=== PATIENT | female | born 1990 | race Hispanic/Latino ===

== ENCOUNTER 2018-03-03 21:21 | Emergency (ER) | payer OTHER, MEDICAID ==
[2018-03-03 21:42] VITALS: BP 133/77; PULSE 76; RESP 17; TEMP 98.5; O2SAT 98
[2018-03-03] MEDS ORDERED: Tdap Vaccine 0.5 ml Vial (10-64 yrs) IM ONE ×2 (22:02→22:25)
[2018-03-03] MEDS ORDERED: Amoxicillin-Clav 875-125 mg Tab PO STA (22:02)
--- NOTE | 2018-03-03 22:05 | ED PDOC ---
HPI: Skin/Bite Injury Time Seen by Provider: 03/03/18 21:53 Chief Complaint (Nursing): Bite Chief Complaint (Provider): Dog bite History Per: Patient Additional Complaint(s): 27 yo female, no PMH, presents to ED for evaluation of a dog bite to right thumb , sustained [employer]. Pt reports she was at a constitution party, dog belonged to another girl who reports that all shots for the animal are UTD. Pt admits pain, no limitations in motion. sensation intact. Left hand dominant Past Medical History Reviewed: Nursing Documentation, Vital Signs Vital Signs: Last Vital Signs Temp 98.5 F 03/03/18 21:40 Pulse 76 03/03/18 21:40 Resp 17 03/03/18 21:40 BP 133/77 03/03/18 21:40 Pulse Ox 98 03/03/18 22:06 - Medical History PMH: No Chronic Diseases Denies: Chronic Kidney Disease - Family History Family History: States: Unknown Family Hx - Social History Alcohol: Social - Immunization History Hx Tetanus Toxoid Vaccination: No - Home Medications Home Medications: Ambulatory Orders Medication Instructions Recorded Azithromycin [Zithromax] 250 mg PO ASDIR 09/04/15 valACYclovir [Valtrex] 1 gm PO Q12H 09/04/15 Amoxicillin/Clavulanate [Augmentin 1 tab PO BID #14 tab 03/03/18 875 MG-125 MG] Fluconazole [Diflucan] 150 mg PO ACB #2 tab 03/03/18 Ibuprofen [Motrin] 600 mg PO Q6 #20 tab 03/03/18 - Allergies Allergies/Adverse Reactions: Allergies Allergy/AdvReac Type Severity Reaction Status Date / Time acetaminophen [From Tylenol] Allergy RASH Verified 03/03/18 21:42 Nuts Allergy ANAPHYLAXIS Uncoded 09/04/15 09:47 Review of Systems ROS Statement: Except As Marked, All Systems Reviewed And Found Negative Skin: Positive for: Other (dog bite) Physical Exam - Reviewed Nursing Documentation Reviewed: Yes Vital Signs Reviewed: Yes - Physical Exam Appears: Positive for: Well, Non-toxic, No Acute Distress Head Exam: Positive for: ATRAUMATIC, NORMAL INSPECTION, NORMOCEPHALIC Skin: Positive for: Normal Color, Warm, DRY Eye Exam: Positive for: EOMI, Normal appearance, PERRL ENT: Positive for: Normal ENT Inspection Neck: Positive for: Normal, Painless ROM Cardiovascular/Chest: Positive for: Regular Rate, Rhythm Respiratory: Positive for: CNT, Normal Breath Sounds Gastrointestinal/Abdominal: Positive for: Normal Exam, Soft Back: Positive for: Normal Inspection Extremity: Positive for: Other (right thumb, 2 cm superficial lacertion noted to radial aspect, over IP joint. no active bleed. FROM to digit. distal sensation intact) Neurologic/Psych: Positive for: Alert, Oriented - ECG O2 Sat by Pulse Oximetry: 98 Medical Decision Making Medical Decision Making: T.dap administered by RN, Rabies and Igg administered by RN and database report writer XR: NAd, as rad by TOMAS Site cleaned and dressed by database report writer. Wound care discussed. Augmentin PO administered Disposition - Clinical Impression Clinical Impression: Animal bite wound - Patient ED Disposition Is Patient to be Admitted: No - Disposition Disposition: Routine/Home Disposition Time: 23:05 Condition: STABLE Prescriptions: Amoxicillin/Clavulanate [Augmentin 875 MG-125 MG] 1 tab PO BID #14 tab Fluconazole [Diflucan] 150 mg PO ACB #2 tab Ibuprofen [Motrin] 600 mg PO Q6 #20 tab Instructions: Animal Bites (DC) Forms: [employer] (Malagasy), [facility] ED School/Work Excuse
[2018-03-03] MEDS ORDERED: Rabies Immune Globulin 150 INTLU/ML VIAL IM ONE (22:17)
[2018-03-03] MEDS ORDERED: Amoxicillin-Clav 875-125 mg Tab PO ONE (22:24)
[2018-03-03] MEDS ORDERED: LIDOCAINE 2% 10ML 20 MG/ML VIAL IJ STA (22:43)
[2018-03-03] MEDS ORDERED: Lidocaine PF 2% (5 ml) Inj (For Cardiac Arrhy) ONE (22:52)
--- NOTE | 2018-03-04 14:51 | RAD ---
Date of service: 03/03/2018 PROCEDURE: Right Thumb radiographs. HISTORY: dog bite COMPARISON: None. TECHNIQUE: AP radiograph of the right hand, as well as spot oblique and lateral images of thumb were obtained. FINDINGS: RIGHT THUMB: Normal right thumb, without fracture or focal lesion. Remainder of the right hand (as seen on the AP view) grossly unremarkable. No cortical destructive changes. JOINTS: Joint spaces preserved. SOFT TISSUES: No opaque foreign bodies OTHER FINDINGS: None. IMPRESSION: Normal right thumb radiographs.
== END 2018-03-03 23:19 | disposition home or self-care (01) ==
LOC: H.ER 21:21
DX: S61.051A Open bite of right thumb without damage to nail, initial encounter (principal); W54.0XXA Bitten by dog, initial encounter; Y92.89 Other specified places as the place of occurrence of the external cause

== ENCOUNTER 2018-03-12 14:13 | Emergency (ER) | payer MEDICAID, OTHER ==
--- NOTE | 2018-03-12 14:55 | ED PDOC ---
HPI: General Adult Time Seen by Provider: 03/12/18 14:55 Chief Complaint (Nursing): Rabies Vaccine Series Chief Complaint (Provider): rabies vaccine History Per: Patient Additional Complaint(s): 27 y/o female presents for last rabies vaccine in series. She denies any reaction to previous vaccinations in series. Past Medical History Reviewed: Historical Data, Nursing Documentation, Vital Signs Vital Signs: Last Vital Signs Temp 98.3 F 03/12/18 14:38 Pulse 102 H 03/12/18 14:38 Resp 20 03/12/18 14:38 BP 132/92 H 03/12/18 14:38 Pulse Ox 99 03/12/18 14:55 - Medical History PMH: No Chronic Diseases - Surgical History Surgical History: No Surg Hx - Family History Family History: States: No Known Family Hx - Living Arrangements Living Arrangements: With Friends/Others - Social History Current smoker - smoking cessation education provided: No Alcohol: Social Drugs: Denies - Immunization History Hx Tetanus Toxoid Vaccination: Yes - Home Medications Home Medications: Ambulatory Orders Medication Instructions Recorded Azithromycin [Zithromax] 250 mg PO ASDIR 09/04/15 valACYclovir [Valtrex] 1 gm PO Q12H 09/04/15 Amoxicillin/Clavulanate [Augmentin 1 tab PO BID #14 tab 03/03/18 875 MG-125 MG] Fluconazole [Diflucan] 150 mg PO ACB #2 tab 03/03/18 Ibuprofen [Motrin] 600 mg PO Q6 #20 tab 03/03/18 Bacitracin Ointment [Bacitracin] 1 applic TOP BID #1 tube 03/06/18 - Allergies Allergies/Adverse Reactions: Allergies Allergy/AdvReac Type Severity Reaction Status Date / Time acetaminophen [From Tylenol] Allergy RASH Verified 03/12/18 14:38 Nuts Allergy ANAPHYLAXIS Uncoded 03/12/18 14:38 Review of Systems ROS Statement: Except As Marked, All Systems Reviewed And Found Negative Constitutional: Negative for: Fever, Chills Skin: Negative for: Rash, Lesions Physical Exam - Reviewed Nursing Documentation Reviewed: Yes Vital Signs Reviewed: Yes - Physical Exam Appears: Positive for: Well, Non-toxic, No Acute Distress Skin: Positive for: Normal Color. Negative for: Rash Eye Exam: Positive for: Normal appearance Cardiovascular/Chest: Positive for: Regular Rate, Rhythm Respiratory: Positive for: Normal Breath Sounds Neurologic/Psych: Positive for: Alert, Oriented, Gait (steady). Negative for: Motor/Sensory Deficits, Aphasia, Facial Droop - ECG O2 Sat by Pulse Oximetry: 99 Pulse Ox Interpretation: Normal Medical Decision Making Medical Decision Makin27 year old here for rabies vaccine Patient received IM vaccination. She was advised to follow up as needed with primary doctor. Disposition - Clinical Impression Clinical Impression: Rabies, need for prophylactic vaccination against - Patient ED Disposition Is Patient to be Admitted: No Counseled Patient/Family Regarding: Need For Followup - Disposition Referrals: [facility] [Outside] Disposition: Routine/Home Disposition Time: 15:09 Condition: STABLE Additional Instructions: Follow up as needed with primary care doctor. Instructions: Rabies Vaccine Forms: [employer] (Danish)
[2018-03-12 15:23] VITALS: BP 129/84; PULSE 91; RESP 16; TEMP 98.1
[2018-03-12 15:27] VITALS: O2SAT 99
== END 2018-03-12 15:23 | disposition home or self-care (01) ==
LOC: H.ER 14:13
DX: Z20.3 Contact with and (suspected) exposure to rabies (principal)